=== PATIENT | female | born 1995 | race Caucasian/White ===

== ENCOUNTER 2020-06-08 18:38 | Emergency (ER) | payer OTHER ==
[~2020-06-08] VITALS: Ht 172.7 cm; Wt 70.3 kg
[2020-06-09] MEDS ORDERED: PEPCID AC10 MG PO (00:43)
[2020-06-09] MEDS ORDERED: NAPROXEN500 MG PO (00:43)
== END 2020-06-09 00:58 | disposition home or self-care (01) ==
LOC: ER 18:38
DX: M26.622 Arthralgia of left temporomandibular joint (principal); M26.69 Other specified disorders of temporomandibular joint

== ENCOUNTER 2021-02-28 12:55 | Emergency (ER) | payer OTHER ==
[~2021-02-28] VITALS: Ht 172.7 cm; Wt 71.2 kg
[~2021-02-28 12:55] MED LIST: NAPROXEN500 MG PO; PEPCID AC10 MG PO
[2021-02-28] MEDS ORDERED: PRENATAL + DHA1 EAC1 (13:06)
[2021-02-28] MEDS ORDERED: ZITHROMAX500 MG PO (16:41)
== END 2021-02-28 17:10 | disposition home or self-care (01) ==
LOC: ER 12:55
DX: O26.891 Other specified pregnancy related conditions, first trimester (principal); J06.9 Acute upper respiratory infection, unspecified; B96.0 Mycoplasma pneumoniae [M. pneumoniae] as the cause of diseases classified elsewhere; Z11.52 Encounter for screening for COVID-19; Z34.01 Encounter for supervision of normal first pregnancy, first trimester

== ENCOUNTER 2021-07-27 20:42 | Emergency (ER) | payer OTHER ==
[~2021-07-27] VITALS: Ht 172.7 cm; Wt 81.2 kg
[~2021-07-27 20:42] MED LIST changes: +PRENATAL + DHA1 EAC1; +ZITHROMAX500 MG PO
[2021-07-27] MEDS ORDERED: PRENATA CHEWAB1 EACH PO (20:56)
== END 2021-07-28 00:46 | disposition home or self-care (01) ==
LOC: ER 20:42
DX: J06.9 Acute upper respiratory infection, unspecified (principal); O26.893 Other specified pregnancy related conditions, third trimester; Z3A.30 30 weeks gestation of pregnancy; Z20.822 Contact with and (suspected) exposure to COVID-19

== ENCOUNTER 2021-09-29 13:15 | Inpatient (IN) | payer OTHER ==
[~2021-09-29] VITALS: Ht 172.7 cm; Wt 85.3 kg
[~2021-09-29 13:15] MED LIST changes: +PRENATA CHEWAB1 EACH PO
== END 2021-10-07 14:13 | disposition home or self-care (01) | DRG 788 ==
LOC: OB/GYN 10-04 13:15 → LDR 10-05 08:53 → OB/GYN 10-05 08:53
PROVIDERS: ADMIT Obstetrics & Gynecology; ATTEND Obstetrics & Gynecology
PROC: 4A1HXCZ Monitoring of Products of Conception, Cardiac Rate, External Approach (ICD-10-PCS; 2021-10-05)
PROC: 10D00Z1 Extraction of Products of Conception, Low, Open Approach (ICD-10-PCS; principal; 2021-10-05 21:15)
DX: O33.8 Maternal care for disproportion of other origin (principal); Z3A.40 40 weeks gestation of pregnancy; Z37.0 Single live birth; Z20.822 Contact with and (suspected) exposure to COVID-19

== ENCOUNTER 2022-07-16 23:46 | Emergency (ER) | payer OTHER ==
[~2022-07-16] VITALS: Ht 172.7 cm; Wt 71.7 kg
== END 2022-07-17 01:00 | disposition home or self-care (01) ==
LOC: ER 23:46
DX: S99.921A Unspecified injury of right foot, initial encounter (principal); W22.8XXA Striking against or struck by other objects, initial encounter; Y93.9 Activity, unspecified; Y92.9 Unspecified place or not applicable; Y99.9 Unspecified external cause status

== ENCOUNTER 2024-06-15 14:54 | Emergency (ER) | payer OTHER ==
[~2024-06-15] VITALS: Ht 167.6 cm; Wt 70.8 kg
[2024-06-15] MEDS ORDERED: CEFTRIAXONE SODIUM 1,000 MG VIAL IM ONE (16:30)
[2024-06-15] MEDS ORDERED: KETOROLAC TROMETHAMINE 60 MG VIAL IM ONE (16:30)
== END 2024-06-15 17:29 | disposition home or self-care (01) ==
LOC: ER 14:56
DX: J02.0 Streptococcal pharyngitis (principal); Z88.6 Allergy status to analgesic agent